=== PATIENT | male | born 2000 | race Caucasian/White ===

== ENCOUNTER → 2024-10-12 11:36 | Outpatient (CLI) | payer SELFPAY ==
[2024-10-12 15:04] LABS: Hepatitis B Surface Antigen NEGATIVE s/c (NEGATIVE)
[2024-10-12 15:10] LABS: Urine N gonorrhoeae NOT DETECTED
[2024-10-12 15:12] LABS: Urine Chlamydia NOT DETECTED
[2024-10-12 15:26] LABS: HIV 1 & 2 Ab/Ag 4th Gen Combo NEGATIVE (NEGATIVE); Hep C Virus Ab w/Reflex Quant NEGATIVE s/c (NEGATIVE)
== END ==
LOC: LAB 11:39
PROVIDERS: Referring Provider Family Medicine; Visit Provider Family Medicine
DX: Z72.51 High risk heterosexual behavior (principal)
CPT/HCPCS: 36415; 86592; 86803; 87340; 87389; 87491; 87591

== ENCOUNTER → 2024-10-20 12:09 | Outpatient (CLI) | payer SELFPAY ==
[2024-10-20 12:59] LABS: Culture Indicated Urine Cult Not Indicated
== END ==
PROVIDERS: Referring Provider Family Medicine; Visit Provider Family Medicine
DX: R30.0 Dysuria (principal)
CPT/HCPCS: 81015